=== PATIENT | male | born 1965 | race Caucasian/White ===

== ENCOUNTER → 2024-08-01 15:25 | Outpatient (REF) | payer OTHER, SELFPAY | LOC: MRI 3T 15:25 | PROVIDERS: ATTENDING PHYSICIAN Specialist; FAMILY PHYSICIAN Family Medicine | DX: R97.20 Elevated prostate specific antigen [PSA] (principal); Z80.42 Family history of malignant neoplasm of prostate | CPT/HCPCS: 72197; A9575 ==